=== PATIENT | female | born 1970 | race Caucasian/White ===

== ENCOUNTER → 2022-01-05 | Outpatient (CLI) | payer OTHER ==
--- NOTE | 2022-01-05 10:39 | Diagnostic Imaging Report ---
Indication: Right hip pain. COMPARISON: 12/07/2020 FINDINGS: 2 radiographic views of the right hip were obtained and show no acute fracture or dislocation. There are however advanced osteoarthritic changes. This consists of severe joint space narrowing with sclerotic remodeling to the articular surfaces and osteophyte formations. Subchondral cystic changes also noted. No unexpected radio opaque foreign bodies are identified. IMPRESSION: 1. No acute fracture dislocation of the right hip. 2. Advanced osteoarthritic changes. Dictated by: Dictated on workstation # [id number]
== END ==
LOC: ORTHO 10:08
PROVIDERS: ATTEND Orthopaedic Surgery
DX: M16.11 Unilateral primary osteoarthritis, right hip (principal)
CPT/HCPCS: 73502

== ENCOUNTER → 2022-01-24 | Outpatient (RCR) | payer OTHER ==
--- NOTE | 2022-01-05 13:11 | Diagnostic Imaging Report ---
INDICATION: PRE OP TOTAL RIGHT HIP ARTHOPLASTY COMPARISON: None FINDINGS: Frontal and lateral views of the chest demonstrate normal heart size and pulmonary vascularity. The lungs are clear. There are no signs of infiltrate, pleural effusions or pneumothoraces. The visualized osseous structures show no acute abnormalities. IMPRESSION: 1. No acute process. No signs of infiltrates, effusions or pneumothoraces. Dictated by: Dictated on workstation # [id number]
[2022-01-05 13:18] VITALS: BP 104/66
[~2022-01-24] VITALS: Ht 157.5 cm; Wt 71.8 kg
[~2022-01-24] MED LIST: ACET600C5 PO; ACHD5005 PO; AMIT50TA3 PO; ASPI81TA16 PO; CALC-56 PO; CALC-823 PO; CHOL100048 PO; CYCL1DRO OP; DENO60DI SQ; HYDR200T46 PO; MAGIC MOUTHWASH; MELO15TA39 PO; MULT-1136 PO; NF-DICLOTA PO; NF-PILO5T PO; PANT40TA52 PO; POLY17PO6 PO; [UNRECOGNIZED DRUG - CODE] PO
[2022-01-24 10:40] LABS: BASOPHILS % (AUTO) 0 % (0-10); EOSINOPHILS # (AUTO) 0.1 10^3/uL (0.0-0.3); EOSINOPHILS % (AUTO) 1 % (0-10); HEMATOCRIT 41 % (35-52); HEMOGLOBIN 13.5 g/dL (11.5-16.0); LYMPHOCYTES # (AUTO) 1.7 10^3/uL (1.0-4.0); LYMPHOCYTES % (AUTO) 29 % (12-44); MEAN CORPUSCULAR HEMOGLOBIN 28 pg (25-34); MEAN CORPUSCULAR HGB CONC 33 g/dL (32-36); MEAN CORPUSCULAR VOLUME 86 fL (80-99); MEAN PLATELET VOLUME 9.3 fL (9.0-12.2); MONOCYTES # (AUTO) 0.2 10^3/uL (0.0-1.0); MONOCYTES % (AUTO) 4 % (0-12); NEUTROPHILS # (AUTO) 3.7 10^3/uL (1.8-7.8); NEUTROPHILS % (AUTO) 66 % (42-75); PLATELET COUNT 222 10^3/uL (130-400); WHITE BLOOD COUNT 5.7 10^3/uL (4.3-11.0)
[2022-01-24 10:49] LABS: POTASSIUM 3.9 MMOL/L (3.6-5.0)
[2022-01-24 10:50] LABS: BILIRUBIN,URINE NEGATIVE (NEGATIVE); CLARITY,URINE CLEAR; COLOR,URINE YELLOW; GLUCOSE, URINE (UA) NEGATIVE (NEGATIVE); KETONES,URINE NEGATIVE (NEGATIVE); LEUKOCYTE ESTERASE ,URINE NEGATIVE (NEGATIVE); NITRITE,URINE NEGATIVE (NEGATIVE); PH,URINE 6.5 (5-9); PROTEIN,URINE NEGATIVE (NEGATIVE); PROTHROMBIN TIME PATIENT 13.6 SEC (12.2-14.7)
[2022-01-24 10:51] LABS: CALCIUM 8.9 MG/DL (8.5-10.1)
[2022-01-24 10:55] LABS: CREATININE SERUM 0.82 MG/DL (0.60-1.30)
[2022-01-24 11:11] LABS: BACTERIA,URINE NEGATIVE /HPF; SQUAMOUS EPITHELIAL CELL,UR RARE /HPF
== END | disposition home or self-care (01) ==
LOC: PREOP 01-05 12:11 → EDSTATUS 01-30 08:00
PROVIDERS: ATTEND Orthopaedic Surgery
DX: Z01.810 Encounter for preprocedural cardiovascular examination (principal); M16.11 Unilateral primary osteoarthritis, right hip; Z96.641 Presence of right artificial hip joint
CPT/HCPCS: 36415; 71046; 80048; 81000; 85025; 85610; 85730; 87081; 93005; 99203

== ENCOUNTER 2022-02-06 06:01 | Day surgery (SDC) | payer OTHER ==
[~2022-02-06] VITALS: Ht 157 cm; Wt 71.8 kg
[2022-02-06] VITALS (12 sets, daily range): BP systolic 89–113; BP diastolic 51–64
[2022-02-06] MEDS ORDERED: proPOfol 200 MG/20 ML (DIPRIVAN) VIAL IV ONE (06:48)
[2022-02-06] MEDS ORDERED: SEVOFLURANE (ULTANE) 15 ML INHAL SOLN ONE ×2 (06:48→08:53)
[2022-02-06] MEDS ORDERED: LIDOCAINE PF 2% 5 ML (XYLOCAINE) VIAL ONE (06:48)
[2022-02-06] MEDS ORDERED: ONDANSETRON 4 MG/2 ML (SDV) Z0FRAN ONE (06:48)
[2022-02-06] MEDS ORDERED: MIDAZOLAM 2 MG/2 ML (VERSED) VIAL ONE (06:49)
[2022-02-06] MEDS ORDERED: fentaNYL INJ 100 MCG/2 ML AMP ONE (06:49)
[2022-02-06] MEDS ORDERED: ceFAZolin INJECTION 1,000 MG ONE (06:57)
[2022-02-06] MEDS: LACTATED RINGERS 1,000 ML IV PRN ×3 (06:59→09:01)
--- NOTE | 2022-02-06 07:16 | History & Physical Orthopedic ---
History and Physical Subjective Date of Exam 02/06/22 Chief Complaint Right Hip Pain HPI/Events since last exam Has had ongoing hip pain for the past few years. Has moderate to severe pain. Localizes to the groin. Has aggravation with walking, going from sit to stand, putting on socks, getting in and out of car, and night symptoms. Has tried NSAIDs and prior corticosteroid injection without relief. Has some radiation d own her anterior thigh. Medical, Surgical History Sjogren's syndrome, hypercholesterolemia, COPD, GERD, IBS, lupus, fibromyalgia tonsillectomy, hysterectomy, cholecystectomy, breast cyst drainage Social History current smoker Family History Rheumatoid arthritis, lupus, heart disease Review of Systems - Allergies: Coded Allergies: No Known Drug Allergies (Unverified , 01/05/22) Home Meds Reported Medications Denosumab (Prolia) 60 Mg/Ml Disp.syrin, 60 MG SQ UD, EA 01/24/22 Calcium/Magnesium (Calcium with Magnesium Tab) 300 Mg-300 Mg Tablet, 1 EACH PO UD, TAB 01/24/22 [Magic Mouthwash] No Conflict Check, UD PRN for PRN 01/24/22 Polyethylene Glycol 3350 (Miralax) 17 Gram Powd.pack, 17 GM PO UD, EACH 01/24/22 Cholecalciferol (Vitamin D3) (Vitamin D3) 25 Mcg (1000 Unit) Capsule, 50 MCG PO BID, CAP 01/24/22 Cyclosporine (Restasis) 0.05 % Droperette, 1 EACH OP UD, DROP 01/24/22 Pilocarpine (Salagen) 5 Mg Tab, 5 MG PO QID, TAB 01/24/22 Pantoprazole Sodium (Pantoprazole Sodium) 40 Mg Tablet.dr, 40 MG PO DAILY, TAB 01/24/22 Acetylcysteine (Z-Tujixd-m-Cysteine) 600 Mg Capsule, 600 MG PO prn tid, CAP 01/24/22 Multivitamin (Multivitamin) 1 Each Tablet, 1 EACH PO DAILY, TAB 01/24/22 Meloxicam (Meloxicam) 15 Mg Tablet, 15 MG PO DAILY, TAB 01/24/22 Hydroxychloroquine Sulfate (Hydroxychloroquine Sulfate) 200 Mg Tablet, 200 MG PO BID, TAB 01/24/22 Diclofenac Sod (Diclofenac Sodium ER) 100 Mg Tab, 75 MG PO BID, TAB 01/24/22 Calcium Carbonate (Calcium) Unknown Strength Tablet, PO UD, TAB 01/24/22 Aspirin (Low Dose Aspirin EC) 81 Mg Tablet.dr, 81 MG PO DAILY, TAB 01/24/22 Objective Exam Constitutional: [Healthy, normal body habitus] Cardiovascular: [S1 and S2 present] Respiratory: [Normal nonlabored breathing, symmetric chest expansion] Gastrointestinal: [Soft, nontender] Skin: [No wounds, bruising over surgical site] Extremities: [Right hip with flexion limited to 100 degrees, stiff rotation, Stinchfield's positive, pulses intact distally, strength 5/5] Neurologic: [Sensation grossly intact to light touch] Vital Signs Vital Signs Date Time Temp Pulse Resp B/P (MAP) Pulse Ox O2 Delivery O2 Flow Rate FiO2 02/06/22 06:30 36.4 77 18 113/54 (73) 98 Room Air Imaging 2 views of right hip dated 01/05/22 demonstrated significant degenerative change with loss of joint space and subchondral cystic formation Assessment and Plan Assessment Right Hip Primary Osteoarthritis Problem List Right Hip Primary Osteoarthritis Plan Has not made progress with conservative measures. Has pain on a daily basis that changes her activity level. She would like to proceed with right total hip arthroplasty. For complete preop discussion, please refer to office note dated 01/05/22. Final Diagonsis Right Hip Primary Osteoarthritis Level of the visit: Level 3 (preop) KATRINA HUIZAR MD Feb 06, 2022 07:16
[2022-02-06] MEDS ORDERED: HYDROmorphone 2 MG/ML VIAL (DILAUDID) ONE ×2 (07:46→09:44)
[2022-02-06] MEDS ORDERED: TRANEXAMIC ACID 3,000 MG/150 ML NS IRRIGATION IR ONE ×2 (08:30)
[2022-02-06] MEDS ORDERED: GLYCOPYRROLATE 0.2 MG/ML (ROBINUL) 2 ML VIAL ONE (08:51)
[2022-02-06] MEDS ORDERED: ROPIVACAINE 5MG/ML 30ML VIAL ONE (08:53)
[2022-02-06] MEDS ORDERED: KETOROLAC 30 MG/ML VIAL ONE (08:53)
[2022-02-06] MEDS ORDERED: ROCURONIUM 50 MG/5 ML (ZEMURON) VIAL IV ONE (08:53)
--- NOTE | 2022-02-06 09:43 | Operative Report - Ortho ---
Operative Report Surgeon (s)/Air Chief Marshal (s) Surgeon KATRINA HUIZAR MD Air Chief Marshal n/a Pre-Operative Diagnosis RIGHT HIP PRIMARY OSTEOARTHRITIS Post-Operative Diagnosis same Operative Report Date of Procedure: Feb 06, 2022 Name of Procedure Performed: Right Total Hip Arthroplasty Description & Findings After obtaining informed consent and marking the patient in the preoperative holding area, the patient did receive antibiotics and was taken to the operating room. General anesthesia was induced and patient was positioned in the lateral decubitus position with the right side up. Right lower extremity was prepped and draped in the usual sterile fashion. Surgical timeout was taken. Posterolateral approach was utilized. Capsule and external rotators were taken down in one layer. Hip was dislocated without difficulty. Femoral neck osteotomy was performed and femoral head was removed. Acetabulum was exposed. Labrum and soft tissue was removed from the acetabulum. Sequential reaming was began beginning with a 43 mm reamer and reaming to a 48 mm. 48 mm trial was placed and had good fit. Trial was removed and the acetabulum was lavaged with normal saline; a 48 mm cup was impacted into place and had excellent press fit. A trial liner was put into place. Attention was turned to the femoral side, a [place] cutter osteotome was used to removed bone near the greater trochanter. Canal finder was inserted followed by the lateralizing reamer. Sequential broaching was began with a 0 and was broached to a 3. Trial 127 degree neck and -4 mm head were put into place. Hip was located and was found to have grossly equal leg lengths; the hip was stable in position of sleep, and stable in flexion and internal rotation. This was accepted. Hip was dislocated. Acetabulum was exposed. Trial liner was removed and a polyethylene liner was locked into place; freer was used to check the locking mechanism. Attention was turned back to the femur, broach was removed a nd the canal was irrigated. A size 3 Accolade II was impacted into place and set at the same level as the broach. A -4 mm ceramic head was impacted onto the guido taper of the stem. Hip was once again located and found to have grossly equal leg lengths with stability in position of sleep as well as flexion and internal rotation. The wound was irrigated. Tranexamic acid was applied for hemostasis. Capsular layer was repaired with #2 fiberwire. The fascial layer was closed with #1 Ticron. The subcutaneous layer was closed with 2-0 Vicryl. Skin was closed with jamia. Wound was dressed with xeroform, 4x4s, ABD, and paper tape. Patient was placed in abduction pillow and transferred to his hospital bed without difficulty and was stable to the recovery room. Anesthesia Type General Estimated Blood Loss 400 mL Specimen(s) collected/removed None KATRINA HUIZAR MD Feb 06, 2022 09:43
[2022-02-06] MEDS ORDERED: MAGNESIUM PO SCH (09:45)
[2022-02-06] MEDS ORDERED: ACETAMINOPHEN 500 MG TAB (TYLENOL) PO PRN (09:45)
[2022-02-06] MEDS ORDERED: CALCIUM PO SCH (09:45)
[2022-02-06] MEDS ORDERED: NON-FORMULARY MEDICATION 1 EA EA (Cyclosporine (Restasis) 1 EACH) OP SCH (09:45)
[2022-02-06] MEDS ORDERED: MILK OF MAGNESIA 400 MG/5 ML 30 ML UDC PO PRN (09:45)
[2022-02-06] MEDS ORDERED: [UNRECOGNIZED DRUG - OTHER] PO SCH (09:45)
[2022-02-06] MEDS ORDERED: BISACODYL 5 MG (DULCOLAX) TABLET PO PRN (09:45)
[2022-02-06] MEDS ORDERED: HYDROmorphone 2 MG/ML VIAL (DILAUDID) IV ONE (09:45)
[2022-02-06] MEDS ORDERED: NON-FORMULARY MEDICATION 1 EA EA (Acetylcysteine (N-Acetyl-l-Cysteine) 600 MG) PO SCH (09:45)
[2022-02-06] MEDS ORDERED: ONDANSETRON 4 MG/2 ML (SDV) Z0FRAN IV PRN (09:45)
[2022-02-06] MEDS ORDERED: ONDANSETRON 4 MG/2 ML (SDV) Z0FRAN IVP PRN (09:45)
[2022-02-06] MEDS: NS IV 1000 ML 1,000 ML IV SCH ×2 (11:22→22:24)
--- NOTE | 2022-02-06 11:23 | Diagnostic Imaging Report ---
Indication: Postop right hip. Time of Exam: 9:43 AM No prior studies are available for comparison. Postop changes total hip arthroplasty on the right are noted. Prosthetic elements appear to be in good position. Left hip is intact. Rami are intact. Impression: Satisfactory postop appearance to the right hip. Dictated by: Dictated on workstation # [id number]
[2022-02-06] MEDS ORDERED: ARTIFICAL TEARS 0.4 ML UNIT DOSE (REFRESH PLUS) OU PRN (11:30)
[2022-02-06] MEDS: morphine INJ 4 MG/ML 1 ML (VIAL/SYRINGE) IVP PRN (12:54)
[2022-02-06] MEDS ORDERED: NON-FORMULARY MEDICATION 1 EA EA (Pilocarpine (Salagen) 5 MG) PO SCH (13:00)
[2022-02-06] MEDS: HYDROcodone/APAP 7.5 MG/325 MG (LORTAB, LORCET PLUS) TABLET PO PRN ×3 (13:41→21:50)
--- NOTE | 2022-02-06 13:56 | Physical Therapy Evaluation ---
PT Evaluation-General Medical Diagnosis Admission Date February 06, 2022 Medical Diagnosis: right SABINA Onset Date: Feb 06, 2022 Therapy Diagnosis Therapy Diagnosis: debility/weakness Precautions Precautions/Isolations: Standard Precautions Weight Bear Status Right Lower Extremity: Right Weight Bearing/Tolerated Left Lower Extremity: Left Full Weight Bearing hip precautions Referral Physician: Belinda Reason for Referral: Evaluation/Treatment Medical History Pertinent Medical History: COPD, OA Additional Medical History seizures/Lupus Current History s/p elective right SABINA Social History Home: Single Level Current Living Status: Other Family Prior Prior Level of Function SCALE: Activities may be completed with or without assistive devices. 5-Kfdtpyzeoa-yajrcpv completes the activity by him/herself with no assistance from a helper. 5-Set-up or Clean-up Assistance-helper sets up or cleans up; patient completes activity. [place] assists only prior to or following the activity. 4-Supervision or Touching Assistance-helper provides verbal cues and/or touching/steadying and/or contact guard assistance as patient completes activity. Assistance may be provided throughout the activity or intermittently. 3-Partial/Moderate Assistance-helper does LESS THAN HALF the effort. [place] lifts, holds or supports trunk or limbs, but provides less than half the effort. 2-Substantial/Maximal Assistance-helper does MORE THAN HALF the effort. [place] lifts or holds trunk or limbs and provides more than half the effort. 3-Wujshnynz-shlftd does ALL the effort. Patient does none of the effort to com plete the activity. Or, the assistance of 2 or more helpers is required for the patient to complete the activity. If activity was not attempted, code reason: 7-Patient Refused. 9-Not Applicable-not attempted and the patient did not perform the activity before the current illness, exacerbation or injury. 10-Not Attempted due to Environmental Limitations-(lack of equipment, weather restraints, etc.). 88-Not Attempted due to Medical Conditions or Safety Concerns. Bed Mobility: 6 Transfers (B,C,W/C): 6 Gait: 6 Stairs: 6 Indoor Mobility (Ambulation): Independent Stairs: Independent PT Evaluation-Current Subjective Patient agrees to PT. Family present. Pain Numeric Pain Scale: 8 Location: Right Location Body Site: Hip Pain Description: Acute Objective Patient Orientation: Normal For Age Attachments: Weston Catheter, IV ROM/Strength ROM Lower Extremities right SABINA precautions/left LE WFL Strength Lower Extremities left LE 4-/5 grossly/right LE 3-/5 grossly Integumentary/Posture Integumentary refer to nursing notes Bowel Incontinence: No Bladder Incontinence: Weston Cath Posture WFL Neuromuscular (Tone, Coordination, Reflexes) grossly intact Sensory Vision: Wears Glasses Hearing: Functional Transfers Roll Left to Right (QC): 3 Sit to Lying (QC): 3 Lying to Sitting/Side of Bed(Q: 3 Sit to Stand (QC): 3 Gait Does the Patient Walk?: No and Walking Goal IS indicated Mode of Locomotion: Walk Anticipated Mode of Locomotion: Walk Distance: 5' Gait Assistive Device: FWW Balance Sitting Static: Normal Sitting Dynamic: Normal Standing Static: Fair Standing Dynamic: Fair Assessment/Needs 51 y.o. female, will benefit from skilled PT to address functional strength and mobility to improve current LOF to safely return to home with family at maximum LOF. Rehab Potential: Fair PT Penitentiary Goals Penitentiary Goals PT Glass Handler Goals Time Frame: Feb 18, 2022 Roll Left & Right (QC): 6 Sit to Lying (QC): 6 Lying-Sitting on Side/Bed(QC): 6 Sit to Stand (QC): 6 Chair/Izl-ml-Hvnqu Xfer(QC): 6 Toilet Transfer (QC): 6 Walk 10 feet (QC): 6 Walk 50ft with 2 Turns (QC): 6 Walk 150 ft (QC): 6 1 Step (curb) (QC): 6 4 Steps (QC): 6 PT Plan Problem List Problem List: Activity Tolerance, Functional Strength, Gait, Transfer, Bed Mobility Treatment/Plan Treatment Plan: Continue Plan of Care Treatment Plan: Bed Mobility, Education, Functional Activity Monica, Functional Strength, Gait, Safety, Therapeutic Exercise, Transfers Treatment Duration: Feb 18, 2022 Frequency: 11 times per week Estimated Hrs Per Day: .5 hour per day Patient and/or Family Agrees t: Yes Time/GCodes Time In: 1320 Time Out: 1335 Total Billed Treatment Time: 15 Total Billed Treatment 1 visit EVModC 15 min MARKO ZAIDI PT Feb 06, 2022 13:56
[2022-02-06] MEDS: ceFAZolin INJECTION 1,000 MG in NS (IVPB) 50 ML IV SCH ×2 (15:12→22:25)
[2022-02-06] MEDS: CELECOXIB 100 MG (CeleBREX) CAP PO SCH (17:37)
[2022-02-06] MEDS: HYDROXYCHLOROQUINE 200 MG (PLAQUENIL) TAB PO SCH (17:37)
[2022-02-06] MEDS: DOCUSATE SODIUM 100 MG (COLACE) CAP PO SCH (20:42)
[2022-02-06] MEDS: VITAMIN D3 25 MCG (1,000 UNITS) TABLET PO SCH (20:42)
[2022-02-06] MEDS ORDERED: NON-FORMULARY MEDICATION 1 EA EA (Cholecalciferol (Vitamin D3) (Vitamin D3) 50 MCG) PO SCH (21:00)
[2022-02-07] MEDS: morphine INJ 4 MG/ML 1 ML (VIAL/SYRINGE) IVP PRN ×2 (03:00→15:04)
[2022-02-07 03:35] VITALS: BP 100/63
[2022-02-07] MEDS: HYDROcodone/APAP 7.5 MG/325 MG (LORTAB, LORCET PLUS) TABLET PO PRN ×5 (03:35→22:16)
[2022-02-07] MEDS: MULTIVIT W/MINERALS TAB (THERAGRAN M) PO SCH (06:14)
[2022-02-07 06:16] LABS: HEMOGLOBIN 10.3 g/dL (11.5-16.0)
[2022-02-07] MEDS: PANTOPRAZOLE 40 MG (PROTONIX) TAB PO SCH (07:56)
[2022-02-07] MEDS: DOCUSATE SODIUM 100 MG (COLACE) CAP PO SCH ×2 (07:57→20:32)
[2022-02-07] MEDS: HYDROXYCHLOROQUINE 200 MG (PLAQUENIL) TAB PO SCH ×2 (07:57→17:25)
[2022-02-07] MEDS: CELECOXIB 100 MG (CeleBREX) CAP PO SCH ×2 (07:57→17:25)
[2022-02-07] MEDS: APIXABAN 2.5 MG (ELIQUIS) TABLET PO SCH ×2 (07:57→20:32)
[2022-02-07 07:58] VITALS: BP 105/69
[2022-02-07] MEDS: VITAMIN D3 25 MCG (1,000 UNITS) TABLET PO SCH ×2 (07:58→20:31)
[2022-02-07] MEDS: NS IV 1000 ML 1,000 ML IV SCH (07:58)
--- NOTE | 2022-02-07 08:19 | Progress Note - Ortho ---
Progress Note Subjective Date of Exam 02/07/22 Chief Complaint POD #1 R SABINA HPI/Events since last exam pain controlled, has been up in room, tolerating diet Review of Systems - Allergies: Coded Allergies: adhesive (Unverified Allergy, Unknown, Rash, 02/06/22) Home Meds Reported Medications Denosumab (Prolia) 60 Mg/Ml Disp.syrin, 60 MG SQ UD, EA 01/24/22 Calcium/Magnesium (Calcium with Magnesium Tab) 300 Mg-300 Mg Tablet, 1 EACH PO UD, TAB 01/24/22 [Magic Mouthwash] No Conflict Check, UD PRN for PRN 01/24/22 Polyethylene Glycol 3350 (Miralax) 17 Gram Powd.pack, 17 GM PO UD, EACH 01/24/22 Cholecalciferol (Vitamin D3) (Vitamin D3) 25 Mcg (1000 Unit) Capsule, 50 MCG PO BID, CAP 01/24/22 Cyclosporine (Restasis) 0.05 % Droperette, 1 EACH OP UD, DROP 01/24/22 Pilocarpine (Salagen) 5 Mg Tab, 5 MG PO QID, TAB 01/24/22 Pantoprazole Sodium (Pantoprazole Sodium) 40 Mg Tablet.dr, 40 MG PO DAILY, TAB 01/24/22 Acetylcysteine (N-Evhyee-n-Cysteine) 600 Mg Capsule, 600 MG PO prn tid, CAP 01/24/22 Multivitamin (Multivitamin) 1 Each Tablet, 1 EACH PO DAILY, TAB 01/24/22 Meloxicam (Meloxicam) 15 Mg Tablet, 15 MG PO DAILY, TAB 01/24/22 Hydroxychloroquine Sulfate (Hydroxychloroquine Sulfate) 200 Mg Tablet, 200 MG PO BID, TAB 01/24/22 Diclofenac Sod (Diclofenac Sodium ER) 100 Mg Tab, 75 MG PO BID, TAB 01/24/22 Calcium Carbonate (Calcium) Unknown Strength Tablet, PO UD, TAB 01/24/22 Aspirin (Low Dose Aspirin EC) 81 Mg Tablet.dr, 81 MG PO DAILY, TAB 01/24/22 Objective Exam Right Hip: Dressing C/D/I, +DF of ankle, no s/s of DVT Vital Signs Vital Signs Date Time Temp Pulse Resp B/P (MAP) Pulse Ox O2 Delivery O2 Flow Rate FiO2 02/07/22 07:58 37.0 67 18 105/69 (81) 97 Room Air 02/07/22 03:35 37.0 69 16 100/63 (75) 96 Room Air 02/06/22 23:25 36.8 68 16 98/60 (73) 96 Room Air 02/06/22 20:00 36.0 69 16 89/53 (65) 96 Room Air 02/06/22 20:00 Room Air 02/06/22 16:00 36.1 72 16 93/55 (68) 95 Room Air 02/06/22 12:16 98 Room Air 02/06/22 11:59 36.7 60 17 104/58 (73) 94 Room Air 02/06/22 10:35 36.5 67 20 107/57 (74) 98 Room Air 02/06/22 10:25 Room Air 02/06/22 10:20 36.6 12 105/60 (75) 97 Room Air 02/06/22 10:15 OxyMask 4 02/06/22 10:10 16 109/64 (79) 97 OxyMask 4 02/06/22 10:05 14 108/60 (76) 100 OxyMask 4 02/06/22 10:00 OxyMask 8 02/06/22 09:50 12 109/60 (76) 100 OxyMask 8 02/06/22 09:45 OxyMask 8 02/06/22 09:40 16 99/51 (67) 99 OxyMask 8 02/06/22 09:31 36.1 20 113/56 (75) 98 OxyMask 8 02/06/22 09:31 OxyMask 8 I & O 02/07/22 07:00 Intake Total 7085 ml Output Total 3075 ml Balance 4010 ml Lab Results Laboratory Tests 02/07/22 05:44: Hemoglobin 10.3L, Hematocrit 32L Imaging Postop AP Pelvis was reviewed from PACS and demonstrated right total hip arthroplasty with components in good position, no complicating features Assessment and Plan Assessment Right Hip Primary Osteoarthritis s/p R SABINA Problem List Right Hip Primary Osteoarthritis s/p R SABINA Plan PT/OT DVT Prophylaxis Plan for home with home health tomorrow Final Diagonsis Right Hip Primary Osteoarthritis s/p R SABINA Level of the visit: Level 3 (postop global) KATRINA HUIZAR MD Feb 07, 2022 08:19
[2022-02-07] MEDS ORDERED: NON-FORMULARY MEDICATION 1 EA EA (Multivitamin 1 EACH) PO SCH (09:00)
--- NOTE | 2022-02-07 09:44 | Physical Therapy Daily Note ---
PT Daily Note-Current Subjective Patient agrees to PT. Family present. Mental Status Patient Orientation: Normal For Age Attachments: IV Transfers SCALE: Activities may be completed with or without assistive devices. 4-Ckeahftrmi-xisuxbh completes the activity by him/herself with no assistance from a helper. 5-Set-up or Clean-up Assistance-helper sets up or cleans up; patient completes activity. [place] assists only prior to or following the activity. 4-Supervision or Touching Assistance-helper provides verbal cues and/or touching/steadying and/or contact guard assistance as patient completes activity. Assistance may be provided throughout the activity or intermittently. 3-Partial/Moderate Assistance-helper does LESS THAN HALF the effort. [place] lift s, holds or supports trunk or limbs, but provides less than half the effort. 2-Substantial/Maximal Assistance-helper does MORE THAN HALF the effort. [place] lifts or holds trunk or limbs and provides more than half the effort. 8-Mixsdbtim-sqwtza does ALL the effort. Patient does none of the effort to complete the activity. Or, the assistance of 2 or more helpers is required for the patient to complete the activity. If activity was not attempted, code reason: 7-Patient Refused. 9-Not Applicable-not attempted and the patient did not perform the activity before the current illness, exacerbation or injury. 10-Not Attempted due to Environmental Limitations-(lack of equipment, weather restraints, etc.). 88-Not Attempted due to Medical Conditions or Safety Concerns. Sit to Stand (QC): 4 Weight Bearing Right Lower Extremity: Right Weight Bearing/Tolerated Left Lower Extremity: Left Full Weight Bearing hip precautions Gait Training Distance: 300' Walk 10 feet (QC): 4 Walk 50 ft with 2 Turns(QC): 4 Walk 150 ft (QC): 4 Gait Assistive Device: FWW slow, steady, slightly antalgic Exercises Seated Therapy Exercises: Ankle pumps, Long arc quads, Glut set Seated Reps: 15 (x 2 sets bilaterally) Assessment Patient much improved on this date. SBA initially with all mobility. Patient instructed to ambulate PRN in hallway with family or independent. RN notified. PT Dolly Driver Goals Fpc Goals PT Fpc Goals Time Frame: Feb 18, 2022 Roll Left & Right (QC): 6 Sit to Lying (QC): 6 Lying-Sitting on Side/Bed(QC): 6 Sit to Stand (QC): 6 Chair/Qas-ot-Sfgnp Xfer(QC): 6 Toilet Transfer (QC): 6 Walk 10 feet (QC): 6 Walk 50ft with 2 Turns (QC): 6 Walk 150 ft (QC): 6 1 Step (curb) (QC): 6 4 Steps (QC): 6 PT Plan Treatment/Plan Treatment Plan: Continue Plan of Care Treatment Plan: Bed Mobility, Education, Functional Activity Monica, Functional Strength, Gait, Safety, Therapeutic Exercise, Transfers Treatment Duration: Feb 18, 2022 Frequency: 11 times per week Estimated Hrs Per Day: .5 hour per day Patient and/or Family Agrees t: Yes Time/GCodes Time In: 850 Time Out: 913 Total Billed Treatment Time: 23 Total Billed Treatment 1 visit EX 8 min GT 15 min MARKO ZAIDI PT Feb 07, 2022 09:44
--- NOTE | 2022-02-07 10:07 | Occupational Therapy Eval ---
OT Evaluation-General/PLF Medical Diagnosis Admission Date Medical Diagnosis: right SABINA Onset Date: Feb 06, 2022 Therapy Diagnosis Therapy Diagnosis: reduced adl status Precautions Precautions/Isolations: Seizure, Fall Prevention, Standard Precautions Weight Bear Status Weight Bearing Restriction: Weight Bearing/Tolerated Location Restriction: R LE Referral Physician: Belinda Referral Reason: Evaluation/Treatment Medical History Pertinent Medical History: COPD, OA Additional Medical History lupus, seizures Current History Post op day 1, s/p R SABINA Per patient she lives in a single story home with adult/teenage children. She was indep with adls and iadls prior to admission. She did not use any AD. Social History Home: Single Level Current Living Status: Other Family ADL-Prior Level of Function SCALE: Activities may be completed with or without assistive devices. 5-Tobfmrudoh-vmmpsyd completes the activity by him/herself with no assistance from a helper. 5-Set-up or Clean-up Assistance-helper sets up or cleans up; patient completes activity. [place] assists only prior to or following the activity. 4-Supervision or Touching Assistance-helper provides verbal cues and/or touching/steadying and/or contact guard assistance as patient completes activity. Assistance may be provided throughout the activity or intermittently. 3-Partial/Moderate Assistance-helper does LESS THAN HALF the effort. [place] lifts, holds or supports trunk or limbs, but provides less than half the effort. 2-Substantial/Maximal Assistance-helper does MORE THAN HALF the effort. [place] lifts or holds trunk or limbs and provides more than half the effort. 2-Bfpzhfxhn-cdflrc does ALL the effort. Patient does none of the effort to complete the activity. Or, the assistance of 2 or more helpers is required for the patient to complete the activity. If activity was not attempted, code reason: 7-Patient Refused. 9-Not Applicable-not attempted and the patient did not perform the activity before the current illness, exacerbation or injury. 10-Not Attempted due to Environmental Limitations-(lack of equipment, weather restraints, etc.). 88-Not Attempted due to Medical Conditions or Safety Concerns. Self Care: Independent Functional Cognition: Independent DME/Equipment: Bath Bench, Tub/Shower Drive Self: Yes OT Current Status Subjective Pt reports pain as 5/10 in R SABINA. States that she cannot receive pain meds yet. Appearance Pt returned to sitting in recliner, all needs within reach. Mental Status/Objective Patient Orientation: Person, Place, Situation Current Hearing Aids: No Dentures/Partials: No Hand Dominance: Right ADL-Treatment Eating (QC): 6 Oral Hygiene (QC): 4 (per clinical judgment in standing, indep in sitting) Upper Body Dressing (QC): 5 (per patient report) Lower Body Dressing (QC): 2 (per patient report) On/Off Footwear (QC): 4 (with use of sock aid) Toileting Hygiene (QC): 4 Pt already dressed for the day. She reports she needed assistance with donning pants over feet (because she did not want to break hip precautions) but that she was independent with clothing management. OT instructed pt on AE to increase indep and adherence to hip precautions during LB dressing/bathing. Post instruction on sock aid, pt able to demonstrate without assistance. Extra effort/time needed to manage sock over R foot secondary to pain and difficulty lifting foot off floor. She was able to stand and ambulate to bathroom with use of walker and SBA. Supervision for safety with all toileting tasks including transfer. Pt questions how to get in/out of tub with tub transfer bench. OT demonstrates simulated tub transfer. Pt appears to understand. OT provided pt with LHS to wash LB post discharge. Pt could benefit from short term OT to further educate/practice AE during functional tasks. Education OT Patient Education: Correct positioning, Modified ADL techniques, Purpose of tx/functional activities, Reviewed precautions, Safety issues, Transfer techniques, Use of adapted equipment Teaching Recipient: Patient Teaching Methods: Demonstration, Discussion Response to Teaching: Verbalize Understanding, Return Demonstration, Reinforcement Needed OT Stunner Goals Stunner Goals Time Frame: Feb 11, 2022 Toileting Hygiene (QC): 6 Upper Body Dressing (QC): 6 Lower Body Dressing (QC): 4 On/Off Footwear (QC): 5 1=Demonstrate adherence to instructed precautions during ADL tasks. 2=Patient will verbalize/demonstrate understanding of assistive devices/modifications for ADL. 3=Patient will improve strength/tolerance for activity to enable patient to perform ADL's. OT Education/Plan Problem List/Assessment Assessment: Impaired I ADL's, Impaired Self-Care Skills Discharge Recommendations Plan/Recommendations: Continue POC Therapy Discharge Recommendati: Home & Family Equpiment Recommendations-D/C: Sheet Metal Welder, Hip Kit, Sock Aide, Long Shoe [place] Treatment Plan/Plan of Care Treatment,Training & Education: Yes Patient would benefit from OT for education, treatment and training to promote independence in ADL's, mobility, safety and/or upper extremity function for ADL's. Plan of Care: ADL Retraining, Functional Mobility, UE Funct Exercise/Act Treatment Duration: Feb 11, 2022 Frequency: 5 times per week Estimated Hrs Per Day: .25 hour per day Agreement: Yes Rehab Potential: Good Time/GCodes Start Time: 09:34 Stop Time: 09:57 Total Time Billed (hr/min): 23 Billed Treatment Time 1 visit EVL (10 min) ADL (13 min) Azra Espinoza OT Feb 07, 2022 10:07
[2022-02-07 12:01] VITALS: BP 103/68
--- NOTE | 2022-02-07 14:36 | Physical Therapy Progress Note ---
Therapy Progress Note Patient is up independently in room and hallway ambulating with FWW. PT reviewed with exercises with patient with patient demonstrating AP, QS, GS and HS. Patient to dismiss to home tomorrow. 1 visit MARKO ZAIDI PT Feb 07, 2022 14:36
[2022-02-07 16:00] VITALS: BP 104/73
[2022-02-07 20:00] VITALS: BP 109/64
[2022-02-08 00:19] VITALS: BP 107/53
[2022-02-08 03:49] VITALS: BP 108/56
[2022-02-08 05:48] LABS: HEMOGLOBIN 10.5 g/dL (11.5-16.0)
[2022-02-08] MEDS: HYDROcodone/APAP 7.5 MG/325 MG (LORTAB, LORCET PLUS) TABLET PO PRN ×2 (06:06→10:03)
[2022-02-08] MEDS: MULTIVIT W/MINERALS TAB (THERAGRAN M) PO SCH (06:06)
[2022-02-08 07:31] VITALS: BP 101/62
[2022-02-08] MEDS: HYDROXYCHLOROQUINE 200 MG (PLAQUENIL) TAB PO SCH (08:00)
[2022-02-08] MEDS: PANTOPRAZOLE 40 MG (PROTONIX) TAB PO SCH (08:00)
[2022-02-08] MEDS: APIXABAN 2.5 MG (ELIQUIS) TABLET PO SCH (08:00)
[2022-02-08] MEDS: CELECOXIB 100 MG (CeleBREX) CAP PO SCH (08:00)
[2022-02-08] MEDS: DOCUSATE SODIUM 100 MG (COLACE) CAP PO SCH (08:00)
[2022-02-08] MEDS: VITAMIN D3 25 MCG (1,000 UNITS) TABLET PO SCH (08:00)
--- NOTE | 2022-02-08 09:45 | Physical Therapy Daily Note ---
PT Daily Note-Current Subjective Patient in recliner pre tx, agrees to PT, has no pain but states she has tightness in her right hip. Patient has been ambulating in hallway on her own and has been shown her home exercise program but has not done stairs yet. Appearance Patient in recliner post tx with nurse call, phone, tray, all needs met. Patient states she is being discharged this afternoon. Mental Status Patient Orientation: Normal For Age Transfers SCALE: Activities may be completed with or without assistive devices. 1-Ltgpgkmfbg-homiftd completes the activity by him/herself with no assistance from a helper. 5-Set-up or Clean-up Assistance-helper sets up or cleans up; patient completes activity. [place] assists only prior to or following the activity. 4-Supervision or Touching Assistance-helper provides verbal cues and/or touching/steadying and/or contact guard assistance as patient completes activity. Assistance may be provided throughout the activity or intermittently. 3-Partial/Moderate Assistance-helper does LESS THAN HALF the effort. [place] lifts, holds or supports trunk or limbs, but provides less than half the effort. 2-Substantial/Maximal Assistance-helper does MORE THAN HALF the effort. [place] lifts or holds trunk or limbs and provides more than half the effort. 0-Decmluxlw-ccuvch does ALL the effort. Patient does none of the effort to complete the activity. Or, the assistance of 2 or more helpers is required for the patient to complete the activity. If activity was not attempted, code reason: 7-Patient Refused. 9-Not Applicable-not attempted and the patient did not perform the activity before the current illness, exacerbation or injury. 10-Not Attempted due to Environmental Limitations-(lack of equipment, weather restraints, etc.). 88-Not Attempted due to Medical Conditions or Safety Concerns. Sit to Stand (QC): 6 Chair/Bpg-ps-Owpud Xfer(QC): 6 Weight Bearing Right Lower Extremity: Right Weight Bearing/Tolerated Left Lower Extremity: Left Full Weight Bearing hip precautions Gait Training Distance: 30'x2 Walk 10 feet (QC): 6 Gait Assistive Device: FWW Stair Training Stair Training: Handrails/: 2 handrails #of Steps: 5 1 Step (curb) (QC): 4 4 Steps (QC): 4 SBA, cues for foot placement Treatments ambulation, stairs Assessment Current Status: Fair Progress increased pain with activity PT Jail Goals Jail Goals PT Freelance Photographer Goals Time Frame: Feb 18, 2022 Roll Left & Right (QC): 6 Sit to Lying (QC): 6 Lying-Sitting on Side/Bed(QC): 6 Sit to Stand (QC): 6 Chair/Bio-sm-Vpngw Xfer(QC): 6 Toilet Transfer (QC): 6 Walk 10 feet (QC): 6 Walk 50ft with 2 Turns (QC): 6 Walk 150 ft (QC): 6 1 Step (curb) (QC): 6 4 Steps (QC): 6 PT Plan Problem List Problem List: Activity Tolerance, Functional Strength, Safety, Balance, Gait, Transfer, Bed Mobility, ROM Treatment/Plan Treatment Plan: Continue Plan of Care Treatment Plan: Bed Mobility, Education, Functional Activity Monica, Functional Strength, Gait, Safety, Therapeutic Exercise, Transfers Treatment Duration: Feb 18, 2022 Frequency: 11 times per week Estimated Hrs Per Day: .5 hour per day Patient and/or Family Agrees t: Yes Safety Risks/Education Patient Education: Gait Training, Transfer Techniques, Steps, Correct Positio allen, Safety Issues Teaching Recipient: Patient Teaching Methods: Demonstration, Discussion Response to Teaching: Reinforcement Needed Time/GCodes Time In: 914 Time Out: 923 Total Billed Treatment Time: 9 Total Billed Treatment 1 visit FA THEA PRINCE PT Feb 08, 2022 09:45
[2022-02-08] MEDS ORDERED: APIX2.5T PO (11:00)
[2022-02-08] MEDS ORDERED: HYDR-34 PO (11:00)
--- NOTE | 2022-02-08 11:03 | Discharge Summary ---
Discharge Summary Hospital Course Hospital Course Date of Admission: Admission Diagnosis : Family Physician/Provider: Date of Discharge: 02/08/22 Discharge Diagnosis: [Right Hip Primary Osteoarthitis s/p Right Total Hip Arthroplasty ] Hospital Course: [On 02/06/22, patient was admitted and underwent right total hip arthroplasty. Tolerated the procedure well and was admitted to the regular floor. On the night of surgery, did begin mechanical DVT prophylaxis. On POD #1, began to work with therapy and did well. Pain was controlled on oral pain medication, and chemical DVT prophylaxis was started. On POD #2, continued to make good progress with mobility and was transitioning positions independently and ambulating with walker in hallways; ready for discharge home with home health. ] Labs and Pending Lab Test: Laboratory Tests 02/08/22 05:36: Hemoglobin 10.5L, Hematocrit 32L Home Meds Active HYDROcodone/APAP 7.5/325 TAB (Acetaminophen/Hydrocodone Bitart) 1 Ea Tablet 1 Ea PO Q4H PRN 7 Days Eliquis (Apixaban) 2.5 Mg Tablet 2.5 Mg PO BID 33 Days Reported Prolia (Denosumab) 60 Mg/Ml Disp.syrin 60 Mg SQ UD Calcium with Magnesium Tab (Calcium/Magnesium) 300 Mg-300 Mg Tablet 1 Each PO UD [Magic Mouthwash] UD PRN Miralax (Polyethylene Glycol 3350) 17 Gram Powd.pack 17 Gm PO UD Vitamin D3 (Cholecalciferol (Vitamin D3)) 25 Mcg (1000 Unit) Capsule 50 Mcg PO BID Restasis (Cyclosporine) 0.05 % Droperette 1 Each OP UD Salagen (Pilocarpine) 5 Mg Tab 5 Mg PO QID Pantoprazole Sodium 40 Mg Tablet.dr 40 Mg PO DAILY Q-Lqgiax-x-Cysteine (Acetylcysteine) 600 Mg Capsule 600 Mg PO PRN TID Multivitamin 1 Each Tablet 1 Each PO DAILY Meloxicam 15 Mg Tablet 15 Mg PO DAILY Hydroxychloroquine Sulfate 200 Mg Tablet 200 Mg PO BID Diclofenac Sodium ER (Diclofenac Sod) 100 Mg Tab 75 Mg PO BID Calcium (Calcium Carbonate) Unknown Strength Tablet Unknown Dose PO UD Low Dose Aspirin EC (Aspirin) 81 Mg Tablet.dr 81 Mg PO DAILY Assessment/Pt Instructions WBAT with walker on right leg, posterior hip dislocation precautions, dry dressing daily to right hip Discharge Instructions Discharge Diet: Regular Diet Discharge Physical Examination Vital Signs Vital Signs Date Time Temp Pulse Resp B/P (MAP) Pulse Ox O2 Delivery O2 Flow Rate FiO2 02/08/22 08:06 Room Air 02/08/22 07:31 36.6 67 20 101/62 (75) 98 02/06/22 10:15 4 Gastrointestinal: Other (Incison C/D/I, +DF of ankle, no s/s of DVT) Allergies: Coded Allergies: adhesive (Unverified Allergy, Unknown, Rash, 02/06/22) Discharge Summary Date of Admission Date of Discharge KATRINA HUIZAR MD Feb 08, 2022 11:03
--- NOTE | 2022-02-08 11:04 | D/C HH Face to Face Order ---
D/C Face to Face Orders Instructions for Patient Via [facility], Patient Instructions/FollowUp: WBAT on right leg, posterior hip dislocation precautions, walker for assist, home health therapy, dry telfa daily to incision site Physician to follow Patient: Cooper Trevino Discharge Diet for Home: Regular Diet Patient Data-Allergies,Ht & Wt Patient Allergies: Coded Allergies: adhesive (Unverified Allergy, Unknown, Rash, 02/06/22) Home Health Need/Face to Face Date of Face to Face: Feb 08, 2022 Clinical Findings: Muscle weakness, Pain with ambulation, Unsteady gait I have seen Pt tvfo-al-khwg: Yes Discharged To: Home Diagnosis/Conditions: Right Total Hip Arthroplasty s/p R SABINA Patient is Homebound due to: Muscle weakness, Pain w/ambulation Homebound Status Due to the above stated illness, injury or surgical procedure (medical condition or diagnosis) and associated clinical findings, the patient is homebound because of his/her inability to leave home except with aid of a supportive device and/or person AND leaving the home requires a considerable and taxing effort or is medically contraindicated. Pt req the following assistanc: Walker Home Health Nursing Orders Home Health Services Order: Physical Therapy-Evaluate & Treat Home Health Infusion Therapy Line Start Date: Feb 06, 2022 Therapy Orders Therapy Orders: Physical Therapy Therapy Specific Orders: Gait training, Increase strength/endurance, Restore ROM Certify Stmt I certify that this patient is under my care and that I, a nurse practitioner or a physician; a imaging assistant working with me, had a face to face encounter that - meets the physician face to face encounter requirements with this patient as dated. COOPER TREVINO MD Feb 08, 2022 11:04
[2022-02-08] MEDS ORDERED: CYCL10TA25 PO (11:12)
[2022-02-08] MEDS ORDERED: CYCLOBENZAPRINE 10 MG (FLEXERIL) TAB PO PRN (11:15)
--- NOTE | 2022-02-08 11:48 | Occupational Ther Daily Note ---
OT Current Status-Daily Note Subjective Pt alert, sitting in recliner. Family present in room. Pt states that she is going home today. Mental Status/Objective Patient Orientation: Person, Place, Time, Situation ADL-Treatment Therapy Code Descriptions/Definitions Functional [place] Measure: 0=Not Assessed/NA 4=Minimal Assistance 1=Total Assistance 5=Supervision or Setup 2=Maximal Assistance 6=Modified [place] 3=Moderate Assistance 7=Complete IndependenceSCALE: Activities may be completed with or without assistive devices. 1-Aytgupmrqb-ozjnapu completes the activity by him/herself with no assistance from a helper. 5-Set-up or Clean-up Assistance-helper sets up or cleans up; patient completes activity. [place] assists only prior to or following the activity. 4-Supervision or Touching Assistance-helper provides verbal cues and/or touching/steadying and/or contact guard assistance as patient completes activity. Assistance may be provided throughout the activity or intermittently. 3-Partial/Moderate Assistance-helper does LESS THAN HALF the effort. [place] lifts, holds or supports trunk or limbs, but provides less than half the effort. 2-Substantial/Maximal Assistance-helper does MORE THAN HALF the effort. [place] lifts or holds trunk or limbs and provides more than half the effort. 9-Jdbqeuqae-swaycb does ALL the effort. Patient does none of the effort to complete the activity. Or, the assistance of 2 or more helpers is required for the patient to complete the activity. If activity was not attempted, code reason: 7-Patient Refused. 9-Not Applicable-not attempted and the patient did not perform the activity before the current illness, exacerbation or injury. 10-Not Attempted due to Environmental Limitations-(lack of equipment, weather restraints, etc.). 88-Not Attempted due to Medical Conditions or Safety Concerns. Other Treatment Pt states that she has assistance for donning/doffing lower body clothing though she is going to just wear slip on shoes instead of socks. Discussed tub bench transfers and sponge bathes, pt feels comfortable with this. Pt has no other concerns and is ready to go home. After therapy, pt sitting in recliner with call light/phone in reach. All needs met in room. OT Protective Signal Repairer Goals Assisted Goals Time Frame: Feb 11, 2022 Toileting Hygiene (QC): 6 Upper Body Dressing (QC): 6 Lower Body Dressing (QC): 4 On/Off Footwear (QC): 5 1=Demonstrate adherence to instructed precautions during ADL tasks. 2=Patient will verbalize/demonstrate understanding of assistive devices/modifications for ADL. 3=Patient will improve strength/tolerance for activity to enable patient to perform ADL's. OT Education/Plan Discharge Recommendations Plan/Recommendations: Discharge/Goals Met (pt to discharge from hospital 02/08/22) Treatment Plan/Plan of Care Patient would benefit from OT for education, treatment and training to promote independence in ADL's, mobility, safety and/or upper extremity function for ADL's. Plan of Care: ADL Retraining, Functional Mobility, UE Funct Exercise/Act Treatment Duration: Feb 11, 2022 Frequency: 5 times per week Estimated Hrs Per Day: .25 hour per day Agreement: Yes Rehab Potential: Good Time/GCodes Start Time: 10:30 Stop Time: 10:38 Total Time Billed (hr/min): 8 Billed Treatment Time 1 visit-FA 1 (8 min) TERRI DAVIS Feb 08, 2022 11:48
== END 2022-02-08 11:45 | disposition home health service (06) ==
LOC: SDC 06:01 → 4TH 10:57 → SDC 02-08 11:45
PROVIDERS: ATTEND Orthopaedic Surgery
DX: M16.11 Unilateral primary osteoarthritis, right hip (principal); F17.210 Nicotine dependence, cigarettes, uncomplicated
CPT/HCPCS: 36415; 72170; 85014; 85018; 94664

== ENCOUNTER → 2022-04-04 | Outpatient (CLI) | payer OTHER ==
[~2022-04-04] MED LIST changes: +APIX2.5T PO; +CYCL10TA25 PO; +HYDR-34 PO
--- NOTE | 2022-04-04 13:09 | Diagnostic Imaging Report ---
INDICATION: Right hip replacement. TIME OF EXAM: 10:02 AM. COMPARISON: Correlation is made with the prior radiographs from 01/05/2022. FINDINGS: Since the prior study, the patient has undergone a total hip arthroplasty. The prosthetic elements appear in good position. No fracture or loosening is seen. IMPRESSION: Satisfactory postop appearance to the right hip. Dictated by: Dictated on workstation # [id number]
== END ==
LOC: ORTHO 09:47
PROVIDERS: ATTEND Orthopaedic Surgery
DX: Z47.89 Encounter for other orthopedic aftercare (principal); Z96.641 Presence of right artificial hip joint
CPT/HCPCS: 73502

== ENCOUNTER → 2022-05-16 | Outpatient (CLI) | payer OTHER | LOC: ORTHO 13:59 | PROVIDERS: ATTEND Orthopaedic Surgery | DX: Z47.89 Encounter for other orthopedic aftercare (principal) ==

== ENCOUNTER → 2023-02-07 | Outpatient (CLI) | payer BC, OTHER ==
--- NOTE | 2023-02-07 12:37 | Diagnostic Imaging Report ---
INDICATION: PAIN IN RIGHT HIP JOINT COMPARISON: 04/04/2022 FINDINGS: 2 frontal radiographic views of the right hip were obtained and show expected postsurgical changes of previous right total hip arthroplasty. There is appropriate anatomic alignment of the femoral component in relation to the acetabular component. Acetabular component appears well seated. The stem of the femoral component is located centrally in the medullary cavity. There is no periprosthetic fracture. No acute fracture or dislocation is identified. No unexpected radiopaque foreign bodies identified. IMPRESSION: Expected postsurgical changes of previous right total hip arthroplasty. No evidence of hardware compromise. Dictated by: Dictated on workstation # [id number]
== END ==
LOC: ORTHO 08:53
PROVIDERS: ATTEND Orthopaedic Surgery
DX: M25.551 Pain in right hip (principal); Z96.641 Presence of right artificial hip joint
CPT/HCPCS: 73502; 99213